=== PATIENT | female | born 1950 | race Caucasian/White ===

== ENCOUNTER 2023-03-20 12:51 | Emergency (ER) | payer MEDICARE, BC ==
[2023-03-20 13:07] VITALS: O2SAT 100
--- NOTE | 2023-03-20 13:15 | ED Physician Documentation ---
PD HPI CHEST PAIN - Stated complaint Stated Complaint: IRREGULAR HEARTBEAT - Chief complaint Chief Complaint: Cardiac - History obtained from History obtained from: Patient - Additional information Additional information: 72-year-old woman with hypertension hyperlipidemia. For the last couple weeks he has had intermittent skipping palpitations. Today had a longer episode lasting about 10 minutes of palpitations with slight chest pressure. She was not short of breath at the time. It is resolved now. She denies pedal edema or calf pain. No recent travel. No heart problems. She has a Fit[employer] watch, it has not been giving her any alarms but I am not sure of the capabilities of that particular model. PD PAST MEDICAL HISTORY - Past Medical History Past Medical History: Yes Cardiovascular: Hypertension, High cholesterol Psych: Depression - Past Surgical History Past Surgical History: Yes Ortho: Knee replacement - Present Medications Home Medications: Ambulatory Orders Medication Instructions Recorded Confirmed Atorvastatin [Lipitor] 10 mg PO DAILY 03/20/23 03/20/23 Irbesartan [Avapro] 75 mg PO DAILY 03/20/23 03/20/23 Sertraline [Zoloft] 25 mg PO DAILY 03/20/23 03/20/23 - Allergies Allergies/Adverse Reactions: Allergies Allergy/AdvReac Type Severity Reaction Status Date / Time Sulfa (Sulfonamide Allergy Rash Verified 03/20/23 13:03 Antibiotics) - Social History Does the pt smoke?: No Smoking Status: Never smoker Does the pt drink ETOH?: Yes Does the pt have substance abuse?: No PD ED PE NORMAL - Vitals Vital signs reviewed: Yes - General General: Alert and oriented X 3, No acute distress - HEENT HEENT: PERRL, EOMI, Pharynx benign - Neck Neck: Supple, no meningeal sign, No bony TTP - Cardiac Cardiac: RRR, No murmur - Respiratory Respiratory: No respiratory distress, Clear bilaterally - Abdomen Abdomen: Non tender - Extremities Extremities: No edema, No calf tenderness / cord - Neuro Neuro: Alert and oriented X 3, Normal speech Results - Vitals Vitals: Vital Signs - 24 hr 03/20/23 03/20/23 13:00 13:50 Temperature 36.7 C Heart Rate 66 65 Respiratory 15 18 Rate Blood Pressure 197/94 H 178/92 H O2 Saturation 100 100 Oxygen O2 Source Room air - EKG (time done) 1258 EKG releavant findings:: EKG personally interpreted by author of this note. Relevant findings are: Rate: Rate (enter#) (62) Rhythm: NSR Platinum: Normal Intervals: Normal SC QRS: Normal Ischemia: Normal ST segments - Labs Labs: Laboratory Tests 03/20/23 03/20/23 13:17 13:17 WBC 6.5 RBC 4.47 Hgb 13.4 Hct 40.7 MCV 91.1 MCH 30.0 MCHC 32.9 RDW 13.0 Plt Count 270 MPV 9.4 Neut # (Auto) 4.6 Lymph # (Auto) 1.4 L Hill # (Auto) 0.4 Eos # (Auto) 0.1 Baso # (Auto) 0.0 Absolute Nucleated RBC 0.00 Nucleated RBC % 0.0 Sodium 139 Potassium 3.7 Chloride 103 Carbon Dioxide 30 Anion Gap 6.0 BUN 13 Creatinine 0.8 Estimated GFR (MDRD) 71 L Glucose 104 Calcium 9.6 Magnesium 1.9 Total Bilirubin 0.9 AST 27 ALT 19 Alkaline Phosphatase 70 Troponin I High Sens 3.6 Total Protein 6.9 Albumin 4.5 Globulin 2.4 Albumin/Globulin Ratio 1.9 TSH 1.21 PD Medical Decision Making - ED course ED course: 72-year-old woman with intermittent palpitations, asymptomatic here. CBC, CMP, troponin, TSH all normal. She was asymptomatic in the department and without ectopy on the monitor. Departure - Departure Disposition: 01 Home, Self Care Clinical Impression: Palpitations Condition: Good Record reviewed to determine appropriate education?: Yes Instructions: ED Palpitations Comments: Follow-up with your primary care physician, next available appointment for consideration for Zio patch or CAM patch or similar event monitor given your symptoms. They may also want to obtain echocardiography. Alternatively, in the interim you could consider a [email or web address] Watch or a [employer], available on [employer] for about $80 and present any abnormal findings to your PCP. That I would formally recommend follow-up and the official event monitor. Return if worse. Forms: PCP List
[2023-03-20 13:21] LABS: BASOPHILS % (AUTO) 0.6 %; EOSINOPHILS # (AUTO) 0.1 10^3/uL (0.0-0.7); EOSINOPHILS % (AUTO) 0.9 %; HCT - HEMATOCRIT 40.7 % (37.0-47.0); HGB - HEMOGLOBIN 13.4 g/dL (12.0-16.0); LYMPHOCYTES # (AUTO) 1.4 10^3/uL (1.5-3.5); LYMPHOCYTES % (AUTO) 21.1 %; MEAN CORPUSCULAR HGB CONC 32.9 g/dL (32.0-36.0); MEAN CORPUSCULAR VOLUME 91.1 fL (81.0-99.0); MEAN PLATELET VOLUME 9.4 fL (7.9-10.8); MONOCYTES # (AUTO) 0.4 10^3/uL (0.0-1.0); MONOCYTES % (AUTO) 5.7 %; NEUTROPHILS # (AUTO) 4.6 10^3/uL (1.5-6.6); NEUTROPHILS % (AUTO) 71.4 %; PLT - PLATELET COUNT 270 10^3/uL (130-450); RED BLOOD COUNT 4.47 10^6/uL (4.20-5.40); WHITE BLOOD COUNT 6.5 x10^3/uL (4.8-10.8)
[2023-03-20 13:35] LABS: ALBUMIN 4.5 g/dL (3.2-5.5); ALBUMIN/GLOBULIN RATIO 1.9 (1.0-2.2); BILIRUBIN,TOTAL 0.9 mg/dL (0.2-1.0); CALCIUM 9.6 mg/dL (8.5-10.3); CREATININE 0.8 mg/dL (0.6-1.3); MAGNESIUM 1.9 mg/dL (1.7-2.3); POTASSIUM 3.7 mmol/L (3.5-4.5); TOTAL PROTEIN 6.9 g/dL (6.4-8.9)
[2023-03-20 13:41] LABS: TROPONIN I HIGH SENSITIVITY 3.6 ng/L (2.3-14.8)
[2023-03-20 13:51] LABS: THYROID STIMULATING HORMONE 1.21 uIU/mL (0.34-5.60)
[2023-03-20 14:05] VITALS: BP 178/92
== END 2023-03-20 14:10 | disposition home or self-care (01) ==
LOC: ED 12:51
DX: R00.2 Palpitations (principal); I10 Essential (primary) hypertension
CPT/HCPCS: 36415; 80053; 83735; 84443; 84484; 85025; 93005; 99283; 99284